=== PATIENT | female | born 1960 | race Caucasian/White ===

== ENCOUNTER 2019-01-23 07:18 | Emergency (ER) | payer BC, OTHER ==
[~2019-01-23] VITALS: Ht 154.9 cm; Wt 54.5 kg
[2019-01-23 07:27] VITALS: BP 107/71
[2019-01-23] MEDS ORDERED: TETanus/Pertussis (Acell)/Diphther VAC/PF (Tdap-Adult) 0.5ml syringe IM ONE (08:10)
[2019-01-23 08:36] LABS: HIV ANTIBODY 1&2 RAPID NON-REACTIVE (Neg)
[2019-01-24 11:12] LABS: HEP B CORE AB, IGM Negative (Negative); HEP B CORE AB, TOT Negative (Negative); HEPATITIS C ANTIBODY <0.1 s/co ratio (0.0-0.9)
== END 2019-01-23 08:27 | disposition home or self-care (01) ==
LOC: ER 07:19
DX: S61.032A Puncture wound without foreign body of left thumb without damage to nail, initial encounter (principal); Z77.21 Contact with and (suspected) exposure to potentially hazardous body fluids; W46.0XXA Contact with hypodermic needle, initial encounter; Y93.89 Activity, other specified; Y92.89 Other specified places as the place of occurrence of the external cause; Y99.9 Unspecified external cause status
CPT/HCPCS: 36415; 86703; 86704; 86705; 86706; 86803; 90471; 90715; 99283